=== PATIENT | female | born 1970 | race Caucasian/White ===

== ENCOUNTER 2023-04-11 15:48 | Emergency (ER) | payer SELFPAY ==
[2023-04-11 16:41] LABS: BASO% 0.6 % (0-3); EOS% 0.8 % (0-8); HEMATOCRIT 41.5 % (37.0-47.0); HEMOGLOBIN 13.3 g/dl (12.0-16.0); IMMATURE GRANULOCYTES 0.2 % (0.0-5.0); LYMPH% 20.2 % (15-41); MEAN CELL VOLUME 88.3 fL CALC (80.0-100.0); MEAN CORPUSCULAR HGB 28.3 pG CALC (26.0-32.0); MONO% 6.5 % (2-13); NEUT# 7.29 thou/uL (2.00-7.15); NEUT% 71.7 % (42-76); RED BLOOD COUNT 4.7 mill/uL (4.20-5.60); RED CELL DISTRI WIDTH 12.2 % (11.5-15.5)
[2023-04-11 16:42] VITALS: BP 140/84
[2023-04-11 16:56] LABS: ALBUMIN 4.9 g/dL (3.2-5.0); ALKALINE PHOSPHATASE 93 u/l (38-126); ANION GAP 12 (6-22 (CALC)); BILIRUBIN, TOTAL 0.7 mg/dL (0.02-1.3); BUN 11 mg/dL (7-17); BUN/CREATININE RATIO 17 (12-20 (CALC)); CARBON DIOXIDE 27 mmol/l (22-30); CHLORIDE 105 mmol/l (95-108); CREATININE 0.7 mg/dL (0.5-1.0); GFR FOR AFR.AMER. > 60 ML/MIN (>=60 (CALC)); GFR OTHER RACES > 60 ML/MIN (>=60 (CALC)); POTASSIUM 3.9 mmol/l (3.5-5.1); SGOT/AST 30 u/l (14-36); SODIUM 140 mmol/l (137-146); TOTAL PROTEIN 8.1 g/dL (6.3-8.2)
[2023-04-11 17:00] VITALS: BP 142/78
[2023-04-11 17:30] VITALS: BP 127/90
[2023-04-11 18:00] VITALS: BP 139/82
[2023-04-11 18:04] LABS: URINE BILIRUBIN - DIPSTICK Negative (NEGATIVE); URINE BLOOD DIPSTICK Trace-intact (NEGATIVE); URINE GLUCOSE - DIPSTICK Negative (NEGATIVE); URINE KETONE Negative (NEGATIVE); URINE LEUK ESTERASE Negative (NEGATIVE); URINE NITRITE - DIPSTICK Negative (Negative); URINE PH 7.5 (4.5-8.0); URINE PROTEIN - DIPSTICK Negative (NEG-TRACE); URINE SPECIFIC GRAVITY 1.015; URINE UROBILINOGEN - DIPSTICK 0.2 E.U./dL (0.2)
[2023-04-11 18:09] LABS: URINE COLOR Yellow
[2023-04-11] MEDS ORDERED: CLONIDINE0.1 MG PO (18:17)
[2023-04-11 18:28] VITALS: BP 139/82
== END 2023-04-11 18:39 | disposition home or self-care (01) | DRG 305 ==
LOC: ED 15:48
PROVIDERS: Nurse Practitioner
DX: I10 Essential (primary) hypertension (principal); F32.A Depression, unspecified

== ENCOUNTER 2023-11-13 18:04 | Emergency (ER) | payer SELFPAY ==
[~2023-11-13] VITALS: Ht 162.6 cm; Wt 81.6 kg
[~2023-11-13 18:04] MED LIST: CLONIDINE0.1 MG PO
[2023-11-13] MEDS ORDERED: SODIUM CHLORIDE 0.9% 1,000 ML IV STA (18:14)
[2023-11-13] MEDS ORDERED: KETOROLAC TROMETHAMINE 30 MG/ML SDV IV STA (18:14)
[2023-11-13] MEDS ORDERED: ONDANSETRON HCl 4 MG/2 ML SDV IV STA (18:14)
[2023-11-13 18:27] LABS: URINE BILIRUBIN - DIPSTICK Negative (NEGATIVE); URINE BLOOD DIPSTICK Small (NEGATIVE); URINE GLUCOSE - DIPSTICK Negative (NEGATIVE); URINE KETONE Negative (NEGATIVE); URINE LEUK ESTERASE Trace (NEGATIVE); URINE NITRITE - DIPSTICK Negative (Negative); URINE PH 6.5 (4.5-8.0); URINE PROTEIN - DIPSTICK Negative (NEG-TRACE); URINE UROBILINOGEN - DIPSTICK 0.2 E.U./dL (0.2)
[2023-11-13 18:28] LABS: BASO% 0.7 % (0-3); EOS% 2.1 % (0-8); HEMATOCRIT 38.7 % (37.0-47.0); HEMOGLOBIN 12.4 g/dl (12.0-16.0); IMMATURE GRANULOCYTES 0.2 % (0.0-5.0); LYMPH% 33.8 % (15-41); MEAN CELL VOLUME 91.3 fL CALC (80.0-100.0); MEAN CORPUSCULAR HGB 29.2 pG CALC (26.0-32.0); MONO% 8.2 % (2-13); NEUT# 5.04 thou/uL (2.00-7.15); RED BLOOD COUNT 4.24 mill/uL (4.20-5.60); RED CELL DISTRI WIDTH 12.3 % (11.5-15.5)
[2023-11-13 18:30] LABS: URINE COLOR Yellow
[2023-11-13 18:36] LABS: URINE RBC 0-2 RBC/hpf (0-5); URINE WBC 0-2 WBC/hpf (0-5)
[2023-11-13 18:37] LABS: URINE SQUAMOUS EPITHELIAL CELL RARE EPI/hpf (0-FEW)
[2023-11-13 18:42] LABS: ALBUMIN 4.4 g/dL (3.2-5.0); CREATININE 0.9 mg/dL (0.5-1.0); POTASSIUM 4.1 mmol/l (3.5-5.1)
[2023-11-13 18:45] LABS: BILIRUBIN, TOTAL 0.4 mg/dL (0.02-1.3)
[2023-11-13] MEDS ORDERED: ONDANSETRON HCl 4 MG/2 ML SDV IV ONE (20:45)
[2023-11-13] MEDS ORDERED: DICYCLOMINE HCL 20 MG/2 ML VIAL IM ONE (20:45)
[2023-11-13] MEDS ORDERED: MORPHINE SULFATE 4 MG/ML VIAL IV ONE (20:45)
[2023-11-13] MEDS ORDERED: cefTRIAXone SODIUM 2 GM in SODIUM CHLORIDE 0.9% 100 ML IV ONE (20:45)
[2023-11-13] MEDS ORDERED: OMNICEF300 M1 PO (20:55)
[2023-11-13] MEDS ORDERED: HYDROCO/APAP1 TA9 PO (20:55)
[2023-11-13] MEDS ORDERED: ZOFRAN4 MG/TAB PO (20:55)
[2023-11-13] MEDS ORDERED: DICYCLOMINE HCL20 MG PO (20:55)
[2023-11-13 22:28] VITALS: BP 132/88
== END 2023-11-13 22:28 | disposition home or self-care (01) | DRG 690 ==
LOC: ED 18:04
PROVIDERS: Family Medicine
DX: N13.6 Pyonephrosis (principal); I10 Essential (primary) hypertension; F32.A Depression, unspecified

== ENCOUNTER 2024-03-20 06:25 | Day surgery (SDC) | payer OTHER ==
[~2024-03-20] VITALS: Ht 162.6 cm; Wt 81.6 kg
[~2024-03-20 06:25] MED LIST changes: +CONCERTA18 M1 PO; +DICYCLOMINE HCL20 MG PO; +HYDROCO/APAP1 TA9 PO; +LISINOPRIL10 MG PO; +OMNICEF300 M1 PO; +PROZAC40 MG PO; +ZOFRAN4 MG/TAB PO
[2024-03-20] MEDS ORDERED: Levofloxacin 500 mg Premix 100 ML IV ONE (06:28)
[2024-03-20] MEDS ORDERED: FAMOTIDINE 10MG/ML 2ML SDV IV ONE (06:28)
[2024-03-20] MEDS ORDERED: LACTATED RINGER'S 1,000 ML IV ONE ×2 (06:29→08:18)
[2024-03-20 09:59] VITALS: BP 159/91
[2024-03-20] MEDS ORDERED: SUGAMMADEX SODIUM 200 MG/2 ML SDV IV ONE (12:51)
[2024-03-20] MEDS ORDERED: ROCURONIUM BROMIDE 10 MG/ML 5ML VIAL IV ONE (12:51)
[2024-03-20] MEDS ORDERED: LIDOCAINE HCL 2% 2ML SDV IV ONE (12:51)
[2024-03-20] MEDS ORDERED: PROPOFOL 200 MG/20 ML VIAL IV ONE (12:51)
== END 2024-03-20 10:25 | disposition home or self-care (01) | DRG 661 ==
LOC: ORM 06:25
PROVIDERS: ATTEND Urology
PROC: 0TF78ZZ Fragmentation in Left Ureter, Via Natural or Artificial Opening Endoscopic (ICD-10-PCS; principal; 2024-03-20)
PROC: 0T778DZ Dilation of Left Ureter with Intraluminal Device, Via Natural or Artificial Opening Endoscopic (ICD-10-PCS; 2024-03-20)
DX: N20.0 Calculus of kidney (principal); I10 Essential (primary) hypertension; Z87.442 Personal history of urinary calculi; Z87.891 Personal history of nicotine dependence
CPT/HCPCS: J1956